=== PATIENT | male | born 1975 | race Caucasian/White ===

== ENCOUNTER 2017-11-03 14:34 | Emergency (ER) | payer SELFPAY ==
[~2017-11-03] VITALS: Ht 195.6 cm; Wt 72.6 kg
[~2017-11-03 14:34] MED LIST: CLOT45CR46 TOP; FLUC100T PO; HYDR-3714 PO; TRAM50TA2 PO
--- OUTSIDE RECORDS SUMMARY | 2017-11-03 14:40 | XMS REPORT ---
Author Author BENITO ELLIOTT [facility] eClinicalWorks Address Unknown Phone Unavailable Care Team Providers Care Assembly Machine Tool Setter Name Role Phone BENITO ELLIOTT CP Unavailable Allergies, Adverse Reactions, Alerts Substance Reaction Event Type N.K.D.A. Info Not Available Non Drug Allergy Problems Problem Type Condition Code Onset Dates Condition Status Assessment Epilepsy, unspecified, not intractable, with status epilepticus G40.901 Active Problem Epilepsy, unspecified, not intractable, with status epilepticus G40.901 Active Medications Medication Code System Code Instructions Start Date End Date Status Dosage Topamax [facility] [address]-37 100 MG take 1 tablet by Oral route 2 times per day Procedures Procedure Coding System Code Date Office Visit, Est Pt., Level 3 CPT-4 62503 Mar 22, 2016 Vital Signs Date/Time: Mar 22, 2016 Cardiac Monitoring Heart Rate 76 bpm Weight 176 lbs Height 77 in BMI 20.87 Index Blood Pressure Diastolic 78 mmHg Blood Pressure Systolic 98 mmHg Results No Known Results Summary Purpose eClinicalWorks Submission
--- OUTSIDE RECORDS SUMMARY | 2017-11-03 14:40 | XMS REPORT ---
Author Author [facility] [place] Address [address] [place] [address] Care Team Providers Care Field Service Consultant Name Role Phone ALEX RAO Unavailable PROBLEMS Type Condition ICD9-CM Code BCT34-HZ Code Onset Dates Condition Status SNOMED Code Problem Epilepsy, unspecified, not intractable, with status epilepticus G40.901 Active [id number] ALLERGIES No Known Allergies SOCIAL HISTORY Never Assessed PLAN OF CARE Activity Details Follow Up prn Reason: VITAL SIGNS Height 77 in 2016-07-27 Weight 176 lbs 2016-07-27 Temperature 98.7 degrees Fahrenheit 2016-07-27 Heart Rate 88 bpm 2016-07-27 Respiratory Rate 18 2016-07-27 BMI 20.87 kg/m2 2016-07-27 Blood pressure systolic 112 mmHg 2016-07-27 Blood pressure diastolic 68 mmHg 2016-07-27 MEDICATIONS Medication Instructions Dosage Frequency Start Date End Date Duration Status Topamax 100 MG take 1 tablet by Oral route 2 times per day Active RESULTS No Results PROCEDURES Procedure Date Ordered Result Body Site CERUMEN REMOVAL 2016-07-27 N/A EAR IRRIGATION July 27, 2016 IMMUNIZATIONS No Known Immunizations MEDICAL (GENERAL) HISTORY Type Description Date Medical History Epilepsy
--- OUTSIDE RECORDS SUMMARY | 2017-11-03 14:40 | XMS REPORT ---
Author Author BENITO ELLIOTT [facility] eClinicalWorks Address Unknown Phone Unavailable Care Team Providers Care Conditioning Machine Operator Name Role Phone BENITO ELLIOTT Unavailable Allergies No Known Allergies Problems Problem Type Condition Code Onset Dates Condition Status Assessment Epilepsy, unspecified, not intractable, with status epilepticus G40.901 Active Problem Unspecified examination V72.9 Active Problem Dermatophytosis of nail 110.1 Active Problem Pain in joint, shoulder region 719.41 Active Problem Costochondritis 733.6 Active Problem Epilepsy, unspecified, not intractable, with status epilepticus G40.901 Active Problem Loss of weight 783.21 Active Problem Other malaise and fatigue 780.79 Active Problem Unspecified disorder of skin and subcutaneous tissue 709.9 Active Problem Cough 786.2 Active Medications Medication Code System Code Instructions Start Date End Date Status Dosage Topamax [facility] [id number] 100 MG take 1 tablet by Oral route 2 times per day Results No Known Results Summary Purpose eClinicalWorks Submission
--- OUTSIDE RECORDS SUMMARY | 2017-11-03 14:40 | XMS REPORT ---
Author Author BENITO ELLIOTT [facility] eClinicalWorks Address Unknown Phone Unavailable Care Team Providers Care Endband Sizer Name Role Phone BENITO ELLIOTT CP Unavailable Allergies, Adverse Reactions, Alerts Substance Reaction Event Type N.K.D.A. Info Not Available Non Drug Allergy Problems Problem Type Condition Code Onset Dates Condition Status Problem Dermatophytosis of nail 110.1 Active Assessment Seizure disorder 345.90 Active Problem Costochondritis 733.6 Active Problem Unspecified disorder of skin and subcutaneous tissue 709.9 Active Problem Pain in joint, shoulder region 719.41 Active Problem Other malaise and fatigue 780.79 Active Problem Unspecified examination V72.9 Active Problem Cough 786.2 Active Problem Loss of weight 783.21 Active Medications Medication Code System Code Instructions Start Date End Date Status Dosage Topamax [facility] [address]-30 100 MG take 1 tablet by Oral route 2 times per day Procedures Procedure Coding System Code Date Office Visit, Est Pt., Level 3 CPT-4 09650 Apr 28, 2015 Vital Signs Date/Time: Apr 28, 2015 Temperature 98.1 F Weight 186.6 lbs Height 77 in BMI 22.13 Index Blood Pressure Diastolic 78 mmHg Blood Pressure Systolic 108 mmHg Cardiac Monitoring Heart Rate 84 bpm Results No Known Results Summary Purpose eClinicalWorks Submission
--- OUTSIDE RECORDS SUMMARY | 2017-11-03 14:41 | XMS REPORT | Continuity of Care Document ---
Author Author [facility] Address Unknown Phone Unavailable Allergies Active Description Code Type Severity Reaction Onset Reported/Identified Relationship to Patient Clinical Status Yes No Known Drug Allergies [id number] Drug Allergy Unknown N/A 11/01/2014 Medications There is no data. Problems Date Dx Coded Attending Type Code Diagnosis Diagnosed By 2008 EARL JEROME, BENITO V70.5 PREEMPLOYMENT/PRESCHOOL EXAM 2008 V70.5 PREEMPLOYMENT/ PRESCHOOL EXAM 2008 [place] PLASCENCIA DO V70.5 PREEMPLOYMENT/PRESCHOOL EXAM 2008 EARL JEROME, BENITO V70.5 PREEMPLOYMENT/PRESCHOOL EXAM 2008 EARL JEROME, BENITO V70.5 PREEMPLOYMENT/PRESCHOOL EXAM 2008 EARL JEROME, BENITO V70.5 PREEMPLOYMENT/PRESCHOOL EXAM 2008 EARL JEROME, BENIOT V70.5 PREEMPLOYMENT/PRESCHOOL EXAM 2008 NANO RINALDI APRN V70.5 PREEMPLOYMENT/PRESCHOOL EXAM 2008 EARL JEROME, BENITO V70.5 PREEMPLOYMENT/PRESCHOOL EXAM 2008 EARL JEROME, BENITO V70.5 PREEMPLOYMENT/PRESCHOOL EXAM 06/19/2009 BENITO ELLIOTT MD 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 06/19/2009 BENITO ELLIOTT MD 690.10 SEBORRHEIC DERMATITIS 06/19/2009 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 06/19/2009 690.10 SEBORRHEIC DERMATITIS 06/19/2009 [place] PLASCENCIA DO 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 06/19/2009 [place] PLASCENCIA DO 690.10 SEBORRHEIC DERMATITIS 06/19/2009 BENITO ELLIOTT MD 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4 Impacted Cerumen 08/29/2009 380.4 Impacted Cerumen 08/29/2009 [place] PLASCENCIA DO 380.4 Impacted Cerumen 08/29/2009 EARL JEROME, BENITO 380.4 Impacted Cerumen 08/29/2009 EARL JEROME, BENITO 380.4 Impacted Cerumen 08/29/2009 BENITO ELLIOTT MD 380.4 Impacted Cerumen 08/29/2009 EARL JEROME, BENITO 380.4 Impacted Cerumen 08/29/2009 NANO RINALDI APRN 380.4 Impacted Cerumen 08/29/2009 EARL JEROME, BENITO 380.4 Impacted Cerumen 08/29/2009 BENITO ELLIOTT MD 380.4 Impacted Cerumen 09/26/2009 BENITO ELLIOTT MD 959.3 Injury, Other And Unspecified, Elbow, Forearm, And Wrist 09/26/2009 BENITO ELLIOTT MD E849.[address] Of Occurrence 09/26/2009 BENITO ELLIOTT MD E906.3 Bite Of Other Animal Except Arthropod 09/26/2009 959.3 Injury, Other And Unspecified, Elbow, Forearm, And Wrist 09/26/2009 E849.8 Other Specified Places Of Occurrence 09/26/2009 E906.3 Bite Of Other Animal Except Arthropod 09/26/2009 PLASCENCIA [place] HUNTER 959.3 Injury, Other And Unspecified, Elbow, Forearm, And Wrist 09/26/2009 PLASCENCIA [place] HUNTER E849.8 Other Specified Places Of Occurrence 09/26/2009 TH[place] E906.3 Bite Of Other Animal Except Arthropod 09/26/2009 BENITO ELLIOTT MD 959.3 Injury, Other And Unspecified, Elbow, Forearm, And Wrist 09/26/2009 BENITO ELLIOTT MD E849.8 Other Specified Places Of Occurrence 09/26/2009 BENITO ELLIOTT MD E906.3 Bite Of Other Animal Except Arthropod 09/26/2009 BENITO ELLIOTT MD 959.3 Injury, Other And Unspecified, Elbow, Forearm, And Wrist 09/26/2009 BENITO ELLIOTT MD E849.8 Other Specified Places Of Occurrence 09/26/2009 BENITO ELLIOTT MD E906.3 Bite Of Other Animal Except Arthropod 09/26/2009 BENITO ELLIOTT MD 959.3 Injury, Other And Unspecified, Elbow, Forearm, And Wrist 09/26/2009 BENITO ELLIOTT MD E849.8 Other Specified Places Of Occurrence 09/26/2009 BENITO ELLIOTT MD E906.3 Bite Of Other Animal Except Arthropod 09/26/2009 BENITO ELLIOTT MD 959.3 Injury, Other And Unspecified, Elbow, Forearm, And Wrist 09/26/2009 BENITO ELLIOTT MD E849.8 Other Specified Places Of Occurrence 09/26/2009 BENITO ELLIOTT MD E906.3 Bite Of Other Animal Except Arthropod 09/26/2009 NANO RINALDI APRN R 959.3 Injury, Other And Unspecified, Elbow, Forearm, And Wrist 09/26/2009 NANO RINALDI APRN R E849.8 Other Specified Places Of Occurrence 09/26/2009 NANO RINALDI APRN R E906.3 Bite Of Other Animal Except Arthropod 09/26/2009 BENITO ELLIOTT MD 959.3 Injury, Other And Unspecified, Elbow, Forearm, And Wrist 09/26/2009 BENITO ELLIOTT MD E849.8 Other Specified Places Of Occurrence 09/26/2009 BENITO ELLIOTT MD E906.3 Bite Of Other Animal Except Arthropod 09/26/2009 BENITO ELLIOTT MD 959.3 Injury, Other And Unspecified, Elbow, Forearm, And Wrist 09/26/2009 BENITO ELLIOTT MD E849.8 [address] Specified [address] Of Occurrence 09/26/2009 BENITO ELLIOTT MD E906.3 Bite Of Other Animal Except Arthropod 12/04/2009 BENITO ELLIOTT MD 728.85 Spasm Of Muscle 12/04/2009 728.85 Spasm Of Muscle 12/04/2009 [place] PLASCENCIA DO 728.85 Spasm Of Muscle 12/04/2009 BENITO ELLIOTT MD 728.85 Spasm Of Muscle 12/04/2009 BENITO ELLIOTT MD 728.85 Spasm Of Muscle 12/04/2009 BENITO ELLIOTT MD 728.85 Spasm Of Muscle 12/04/2009 BENITO ELLIOTT MD 728.85 Spasm Of Muscle 12/04/2009 NANO RINALDI APRN 728.85 Spasm Of Muscle 12/04/2009 BENITO ELLIOTT MD 728.85 Spasm Of Muscle 12/04/2009 BENITO ELLIOTT MD 728.85 Spasm Of Muscle 12/11/2009 BENITO ELLIOTT MD 686.9 Unspecified Local Infection Of Skin And Subcutaneous Tissue 12/11/2009 686.9 Unspecified Local Infection Of Skin And Subcutaneous Tissue 12/11/2009 [place] PLASCENCIA DO 686.9 Unspecified Local Infection Of Skin And Subcutaneous Tissue 12/11/2009 BENITO ELLIOTT MD 686.9 Unspecified Local Infection Of Skin And Subcutaneous Tissue 12/11/2009 BENITO ELLIOTT MD 686.9 Unspecified Local Infection Of Skin And Subcutaneous Tissue 12/11/2009 BENITO ELLIOTT MD 686.9 Unspecified Local Infection Of Skin And Subcutaneous Tissue 12/11/2009 BENITO ELLIOTT MD 686.9 Unspecified Local Infection Of Skin And Subcutaneous Tissue 12/11/2009 NANO RINALDI APRN 686.9 Unspecified Local Infection Of Skin And Subcutaneous Tissue 12/11/2009 BENITO ELLIOTT MD 686.9 Unspecified Local Infection Of Skin And Subcutaneous Tissue 12/11/2009 BENITO ELLIOTT MD 686.9 Unspecified Local Infection Of Skin And Subcutaneous Tissue 02/01/2010 BENITO ELLIOTT MD 305.1 Nondependent Abuse Of Drugs, Tobacco Use Disorder 02/01/2010 BENITO ELLIOTT MD 466.0 Bronchitis, Acute 02/01/2010 305.1 Nondependent Abuse Of Drugs, Tobacco Use Disorder 02/01/2010 466.0 Bronchitis, Acute 02/01/2010 [place] PLASCENCIA DO 305.1 Nondependent Abuse Of Drugs, Tobacco Use Disorder 02/01/2010 [place] PLASCENCIA DO 466.0 Bronchitis, Acute 02/01/2010 BENITO ELLIOTT MD 305.1 Nondependent Abuse Of Drugs, Tobacco Use Disorder 02/01/2010 BENITO ELLIOTT MD 466.0 Bronchitis, Acute 02/01/2010 BENITO ELLIOTT MD 305.1 Nondependent Abuse Of Drugs, Tobacco Use Disorder 02/01/2010 BENITO ELLIOTT MD 466.0 Bronchitis, Acute 02/01/2010 BENITO ELLIOTT MD 305.1 Nondependent Abuse Of Drugs, Tobacco Use Disorder 02/01/2010 BENITO ELLIOTT MD 466.0 Bronchitis, Acute 02/01/2010 BENITO ELLIOTT MD 305.1 Nondependent Abuse Of Drugs, Tobacco Use Disorder 02/01/2010 BENITO ELLIOTT MD 466.0 Bronchitis, Acute 02/01/2010 NANO RINALDI APRN R 305.1 Nondependent Abuse Of Drugs, Tobacco Use Disorder 02/01/2010 NANO RINALDI APRN R 466.0 Bronchitis, Acute 02/01/2010 BENITO ELLIOTT MD 305.1 Nondependent Abuse Of Drugs, Tobacco Use Disorder 02/01/2010 BENITO ELLIOTT MD 466.0 Bronchitis, Acute 02/01/2010 BENITO ELLIOTT MD 305.1 Nondependent Abuse Of Drugs, Tobacco Use Disorder 02/01/2010 BENITO ELLIOTT MD 466.0 Bronchitis, Acute 08/24/2010 BENITO ELLIOTT MD 723.1 CERVICALGIA 08/24/2010 BENITO ELLIOTT MD 780.39 OTHER CONVULSIONS 08/24/2010 723.1 CERVICALGIA 08/24/2010 780.39 OTHER CONVULSIONS 08/24/2010 [place] PLASCENCIA DO 723.1 CERVICALGIA 08/24/2010 [place] PLASCENCIA DO 780.39 OTHER CONVULSIONS 08/24/2010 BENITO ELLIOTT MD 723.1 CERVICALGIA 08/24/2010 BENITO ELLIOTT MD 780.39 OTHER CONVULSIONS 08/24/2010 BENITO ELLIOTT MD 723.1 CERVICALGIA 08/24/2010 BENITO ELLIOTT MD 780.39 OTHER CONVULSIONS 08/24/2010 BENITO ELLIOTT MD 723.1 CERVICALGIA 08/24/2010 BENITO ELLIOTT MD 780.39 OTHER CONVULSIONS 08/24/2010 BENITO ELLIOTT MD 723.1 CERVICALGIA 08/24/2010 BENITO ELLIOTT MD 780.39 OTHER CONVULSIONS 08/24/2010 NANO RINALDI APRN 723.1 CERVICALGIA 08/24/2010 NANO RINALDI APRN 780.39 OTHER CONVULSIONS 08/24/2010 BENITO ELLIOTT MD 723.1 CERVICALGIA 08/24/2010 BENITO ELLIOTT MD 780.39 OTHER CONVULSIONS 08/24/2010 BENITO ELLIOTT MD 723.1 CERVICALGIA 08/24/2010 BENITO ELLIOTT MD 780.39 OTHER CONVULSIONS 09/24/2011 BENITO ELLIOTT MD 719.41 PAIN IN JOINT INVOLVING SHOULDER REGION 09/24/2011 719.41 PAIN IN JOINT INVOLVING SHOULDER REGION 09/24/2011 [place] PLASCENCIA DO 719.41 PAIN IN JOINT INVOLVING SHOULDER REGION 09/24/2011 BENITO ELLIOTT MD 719.41 PAIN IN JOINT INVOLVING SHOULDER REGION 09/24/2011 BENITO ELLIOTT MD 719.41 PAIN IN JOINT INVOLVING SHOULDER REGION 09/24/2011 BENITO ELLIOTT MD 719.41 PAIN IN JOINT INVOLVING SHOULDER REGION 09/24/2011 BENITO ELLIOTT MD 719.41 PAIN IN JOINT INVOLVING SHOULDER REGION 09/24/2011 NANO RINALDI APRN 719.41 PAIN IN JOINT INVOLVING SHOULDER REGION 09/24/2011 BENITO ELLIOTT MD 719.41 PAIN IN JOINT INVOLVING SHOULDER REGION 09/24/2011 BENITO ELLIOTT MD 719.41 PAIN IN JOINT INVOLVING SHOULDER REGION 09/15/2012 V72.9 EXAMINATION, UNSPEC 09/15/2012 [place] PLASCENCIA DO V72.9 EXAMINATION, UNSPEC 09/15/2012 BENITO ELLIOTT MD V72.9 EXAMINATION, UNSPEC 09/15/2012 BENITO ELLIOTT MD V72.9 EXAMINATION, UNSPEC 09/15/2012 BENITO ELLIOTT MD V72.9 EXAMINATION, UNSPEC 09/15/2012 BENITO ELLIOTT MD V72.9 EXAMINATION, UNSPEC 09/15/2012 NANO RINALDI APRN V72.9 EXAMINATION, UNSPEC 09/15/2012 BENITO ELLIOTT MD V72.9 EXAMINATION, UNSPEC 09/15/2012 BENITO ELLIOTT MD V72.9 EXAMINATION, UNSPEC 04/01/2013 PLASCENCIA DOCHARLOTTE 709.9 UNSPECIFIED DISORDER OF SKIN AND SUBCUTANEOUS TISSUE 04/01/2013 PLASCENCIA DO[place]OTTE K 786.2 COUGH 04/01/2013 BENITO ELLIOTT MD 709.9 UNSPECIFIED DISORDER OF SKIN AND SUBCUTANEOUS TISSUE 04/01/2013 BENITO ELLIOTT MD 786.2 COUGH 04/01/2013 BENITO ELLIOTT MD 709.9 UNSPECIFIED DISORDER OF SKIN AND SUBCUTANEOUS TISSUE 04/01/2013 BENITO ELLIOTT MD 786.2 COUGH 04/01/2013 BENITO ELLIOTT MD 709.9 UNSPECIFIED DISORDER OF SKIN AND SUBCUTANEOUS TISSUE 04/01/2013 BENITO ELLIOTT MD 786.2 COUGH 04/01/2013 BENITO ELLIOTT MD 709.9 UNSPECIFIED DISORDER OF SKIN AND SUBCUTANEOUS TISSUE 04/01/2013 BENITO ELLIOTT MD 786.2 COUGH 04/01/2013 NANO RINALDI APRN 709.9 UNSPECIFIED DISORDER OF SKIN AND SUBCUTANEOUS TISSUE 04/01/2013 NANO RINALDI APRN 786.2 COUGH 04/01/2013 BENITO ELLIOTT MD 709.9 UNSPECIFIED DISORDER OF SKIN AND SUBCUTANEOUS TISSUE 04/01/2013 BENITO ELLIOTT MD 786.2 COUGH 04/01/2013 BENITO ELLIOTT MD 709.9 UNSPECIFIED DISORDER OF SKIN AND SUBCUTANEOUS TISSUE 04/01/2013 BENITO ELLIOTT MD 786.2 COUGH 06/21/2013 BENITO ELLIOTT MD 110.1 DERMATOPHYTOSIS OF NAIL 06/21/2013 BENITO ELLIOTT MD 110.1 DERMATOPHYTOSIS OF NAIL 06/21/2013 BENITO ELLIOTT MD 110.1 DERMATOPHYTOSIS OF NAIL 06/21/2013 BENITO ELLIOTT MD 110.1 DERMATOPHYTOSIS OF NAIL 06/21/2013 NANO RINALDI APRN 110.1 DERMATOPHYTOSIS OF NAIL 06/21/2013 BENITO ELLIOTT MD 110.1 DERMATOPHYTOSIS OF NAIL 06/21/2013 BENITO ELLIOTT MD 110.1 DERMATOPHYTOSIS OF NAIL 09/24/2013 BENITO ELLIOTT MD 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/24/2013 NANO RINALDI APRN 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/24/2013 BENITO ELLIOTT MD 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/24/2013 BENITO ELLIOTT MD 733.6 TIETZE'S DISEASE 04/15/2014 BENITO ELLIOTT MD 780.79 OTHER MALAISE AND FATIGUE 04/15/2014 BENITO ELLIOTT MD 783.21 LOSS OF WEIGHT 11/01/2014 DEVORAH TOVAR L Ot 110.4 11/01/2014 DEVORAH TOVAR Ot 729.5 11/01/2014 DEVORAH TOVAR Ot 893.0 11/01/2014 SARAH TOVAREN L Ot E000.8 11/01/2014 DEVORAH TOVAR L Ot E928.9 Procedures Code [place] [address] ROUTINE VENIPUNCTURE 06/21/2013 [id number] GFR CALC (RESULT ONLY) 06/21/2013 70256 CMP 06/21/2013 69441 XRAY RIBS LEFT UNILATERAL 2 OR MORE VIEWS 09/24/2013 40294 ROUTINE VENIPUNCTURE 04/15/2014 72729 CBC 04/15/2014 [id number] GFR CALC (RESULT ONLY) 04/15/2014 09349 CMP 04/15/2014 74108 TSH 04/15/2014 Results There is no data. Encounters ACCT No. Visit Date/Time Discharge Status Pt. Type Provider Facility Loc./Unit Complaint [id number] 04/15/2014 14:15:00 04/15/2014 23:59:59 CLS Outpatient BENITO ELLIOTT MD [id number] 03/18/2014 10:45:00 03/18/2014 23:59:59 CLS Outpatient BENITO ELLIOTT MD [id number] 09/24/2013 15:09:00 09/24/2013 23:59:59 CLS Outpatient NANO RINALDI APRN [id number] 09/24/2013 15:09:00 09/24/2013 23:59:59 CLS Outpatient BENITO ELLIOTT MD [id number] 08/23/2013 09:33:00 08/23/2013 23:59:59 CLS Outpatient BENITO ELLIOTT MD [id number] 06/21/2013 15:33:00 06/21/2013 23:59:59 CLS Outpatient BENITO ELLIOTT MD [id number] 06/21/2013 15:33:00 06/21/2013 23:59:59 CLS Outpatient BENITO ELLIOTT MD [id number] 04/01/2013 18:24:00 04/01/2013 23:59:59 CLS Outpatient [place] PLASCENCIA DO [id number] 09/24/2011 09:27:00 09/24/2011 23:59:59 CLS Outpatient BENITO ELLIOTT MD [id number] 09/15/2012 15:57:00 Document Registration [id number] 11/01/2014 20:48:00 11/01/2014 23:31:00 DIS Emergency DEVORAH TOVAR [id number] 11/01/2014 20:48:43 ACT Document Registration [id number] 07/22/2017 14:20:00 07/22/2017 23:59:59 CLS Outpatient BENITO ELLIOTT MD [facility]
--- NOTE | 2017-11-03 14:59 | ED Headache ---
General Chief Complaint: Head/Cervical Problems Stated Complaint: WALLS,ANXIETY Source: patient History of Present Illness Date Seen by Provider: Nov 03, 2017 Time Seen by Provider: 14:57 Initial Comments to ER with reports of headache and anxiety. He was seen by his primary care provider this morning who gave him a prescription for antianxiety medications.he is concerned that he has either a brain tumor or aneurysmbecause his mother had an aneurysmand he believes that he has a history of a brain tumor. He is not sure what type.. Timing/Duration: other (2 weeks) Severity/Quality: moderate Location: parietal Prior Headaches/Recent Trauma: occasional headaches Associated Symptoms: No confusion, No facial pain Allergies and Home Medications Allergies Coded Allergies: No Known Drug Allergies (Unverified , 11/01/14) Home Medications Topiramate 100 Mg Tablet, 100 MG PO BID, (Reported) Patient Home Medication List Home Medication List Reviewed: Yes Review of Systems Constitutional: see HPI Eyes: No Symptoms Reported Ears, Nose, Mouth, Throat: no symptoms reported Respiratory: no symptoms reported Cardiovascular: no symptoms reported Genitourinary: no symptoms reported Musculoskeletal: no symptoms reported Skin: no symptoms reported Psychiatric/Neurological: No Symptoms Reported Past Diprpzw-Uiwdte-Deltwb Hx Patient Social History Recent Foreign Travel: No Contact w/Someone Who Travel: No Immunizations Up To Date Tetanus Booster (TDap): Unknown Past Medical History Seizure Disorder Reproductive Disorders: No Sexually Transmitted Disease: No HIV/AIDS: No Adverse Reaction/Blood Tranf: No Family Medical History No Pertinent Family Hx Physical Exam Vital Signs Vital Signs - First Documented 11/03/17 14:50 Temp 96.9 Pulse 105 Resp 18 B/P (MAP) 151/83 (105) Pulse Ox 99 Capillary Refill : General Appearance: WD/WN, no apparent distress HEENT: PERRL/EOMI, normal ENT inspection Neck: non-tender, full range of motion Cardiovascular: regular rate, rhythm, no murmur Respiratory: no respiratory distress, no accessory muscle use Gastrointestinal: normal bowel sounds, non tender Extremities: normal range of motion, non-tender Psychiatric: alert, oriented x 3 Crainal Nerves: normal hearing, normal speech Skin: normal color, warm/dry Progress/Results/Core Measures Results/Orders My Orders Orders - KADY VELASCO APRN Ct Head Wo (11/03/17 14:48) Vital Signs/I&O 11/03/17 14:50 Temp 96.9 Pulse 105 Resp 18 B/P (MAP) 151/83 (105) Pulse Ox 99 Departure Impression Primary Impression: Headache Additional Impression: Anxiety Disposition: 01 HOME, SELF-CARE Condition: Stable Departure-Patient Inst. Decision time for Depature: 14:59 Referrals: BENITO ELLIOTT MD (PCP/Family) Primary Care Physician Patient Instructions: Headache, Adult (DC) Add. Discharge Instructions: 1. Follow-up with your doctor next week 2. Return to ER for any concerns 3.All discharge instructions reviewed with patient and/or family. Voiced understanding. KADY VELASCO AUTOMATED ACCESS SYSTEMS TECHNICIAN Nov 03, 2017 14:59
[2017-11-03] MEDS ORDERED: TOPI100T PO (15:09)
--- NOTE | 2017-11-03 15:34 | Diagnostic Imaging Report ---
PROCEDURE: CT head without contrast. TECHNIQUE: Multiple contiguous axial images were obtained through the brain without the use of intravenous contrast. INDICATION: Headache for two weeks. Patient has family history of intracranial aneurysms. No prior studies are available for comparison. The ventricles and sulci are within normal limits. No sulcal effacement is identified. There is no midline shift. No acute intra-axial or extra-axial hemorrhage is detected. Cisterns are patent. The visualized paranasal sinuses are clear. IMPRESSION: No acute intracranial process is detected. Dictated by: Dictated on workstation # [id number]
[2017-11-03 16:12] VITALS: BP 151/83
== END 2017-11-03 16:12 | disposition home or self-care (01) ==
LOC: EDUNIT# 14:34 → ER 14:36
DX: R51 Headache (principal); F41.9 Anxiety disorder, unspecified; G40.909 Epilepsy, unspecified, not intractable, without status epilepticus
CPT/HCPCS: 70450

== ENCOUNTER → 2020-06-29 | Outpatient (CLI) | payer SELFPAY ==
[~2020-06-29] MED LIST changes: +TOPI100T PO
--- NOTE | 2020-06-29 12:34 | Diagnostic Imaging Report ---
PROCEDURE: MR imaging cervical spine without contrast. TECHNIQUE: Multiplanar, multisequence MR imaging of the cervical spine was performed without contrast. INDICATION: Neck pain with right-sided shoulder and arm pain. COMPARISON: No prior studies are available for comparison. FINDINGS: There is reversal of the normal cervical lordotic curvature. Vertebral body marrow signal is unremarkable for a geographic marrow lesion. There are some multilevel degenerative changes noted with variable disc space narrowing and desiccation. This appears to be greatest at C5-C6 level where there are also Modic changes in the adjacent endplates. The cervical cord demonstrates homogeneous signal intensity and normal morphology. Craniocervical junction does demonstrate some cerebellar tonsillar ectopia. C2-C3: No central canal or neural foraminal narrowing is seen. C3-C4: No central canal or neural foraminal narrowing is detected. C4-C5: No central canal or neural foraminal narrowing is seen. Endplate osteophytes do indent the ventral thecal sac. C5-C6: Broad-based disc/osteophyte complex indents the ventral thecal sac. There appears to be moderate stenosis of the left neural foramen. Right neural foramen is patent. C6-C7: Endplate osteophytes indent the ventral thecal sac but central canal and neural foramina are widely patent. C7-T1: Central canal and neural foramina are widely patent. IMPRESSION: Reversal of normal cervical lordotic curvature with multilevel cervical spondylosis. There does appear to be moderate left neural foraminal narrowing at C5-C6 level. No central canal stenosis is detected. Dictated by: Dictated on workstation # [id number]
== END ==
LOC: RAD 11:00
PROVIDERS: ATTEND Nurse Practitioner
DX: M47.812 Spondylosis without myelopathy or radiculopathy, cervical region (principal); M50.20 Other cervical disc displacement, unspecified cervical region
CPT/HCPCS: 72141

== ENCOUNTER 2020-10-20 17:41 | Emergency (ER) | payer SELFPAY ==
[~2020-10-20] VITALS: Ht 195.6 cm; Wt 81.6 kg
[2020-10-20 17:46] VITALS: BP 131/101
[2020-10-20] MEDS ORDERED: CEPH500T PO (18:10)
--- NOTE | 2020-10-20 18:12 | ED Lower Extremity ---
General Chief Complaint: Lower Extremity Stated Complaint: BI LAT FEET TOENAILS BLACK/LIFTING Nursing Triage Note: PT ARRIVED BY PRIVATE VEHICLE WITH CHIEF COMPLAINT OF TOE NAILS FALLING OFF. PT WAS ALERT, ORIENTED X 4 AND AMBUALATORY. A COUPLE MONTHS AGO SEVERAL CINDER BLOCKS FELL ON HIS TOES AT WORK. THE TOE NAILS NOW HAVE FUNGUS. PT HAS HISTORY OF EPILEPSY AND TAKES TOPAMAX. PT STATED LEFT TOE DOESN'T HURT MUCH, BUT RIGHT TOE HURTS WORSE. PT DENIES ALLERGIES. REPORT WAS GIVEN TO PROVIDER AFTER VITALS WERE TAKEN. Nursing Sepsis Screen: No Definite Risk Source: patient Exam Limitations: no limitations (KADY VELASCO APRN) History of Present Illness Date Seen by Provider: October 20, 2020 Time Seen by Provider: 18:06 Initial Comments To ER with reports that both of his great toenails are unattached. He relates this to dropping a cinder block on them a month ago. Onset: other Severity: moderate Pain/Injury Location: bilateral 1st toe Modifying Factors: Worse With Movement (KADY VELASCO APRN) Allergies and Home Medications Allergies Coded Allergies: No Known Drug Allergies (Unverified , 11/01/14) Home Medications Cephalexin 500 Mg Tablet, 500 MG PO TID Prescribed by: KADY VELASCO on 10/20/20 1810 Topiramate 100 Mg Tablet, 100 MG PO BID, (Reported) Patient Home Medication List Home Medication List Reviewed: Yes (KADY VELASCO APRN) Review of Systems Constitutional: see HPI EENTM: see HPI Respiratory: no symptoms reported Cardiovascular: no symptoms reported Musculoskeletal: no symptoms reported Skin: see HPI Psychiatric/Neurological: No Symptoms Reported (KADY VELASCO APRN) Past Aaiktqj-Hjxqab-Vfpega Hx Patient Social History Alcohol Use: Denies Use Type Used: Cigarettes 2nd Hand Smoke Exposure: Yes Recent Infectious Disease Expo: No Recent Hopitalizations: No (KADY VELASCO APRN) Immunizations Up To Date Tetanus Booster (TDap): Unknown (KADY VELASCO APRN) Past Medical History Surgeries: No Respiratory: No Cardiac: No Neurological: Yes Seizure Disorder Reproductive Disorders: No Sexually Transmitted Disease: No HIV/AIDS: No Gastrointestinal: No Musculoskeletal: No Endocrine: No Cancer: No Psychosocial: No Integumentary: No Blood Disorders: No Adverse Reaction/Blood Tranf: No (KADY VELASCO APRN) Family Medical History No Pertinent Family Hx (KADY VELASCO APRN) Physical Exam Vital Signs Vital Signs - First Documented 10/20/20 17:46 Temp 36.7 Pulse 93 Resp 18 B/P (MAP) 131/101 (111) Pulse Ox 96 O2 Delivery Room Air (FANNIE REYES MD) Vital Signs Capillary Refill : Less Than 3 Seconds (KDAY VELASCO APRN) Height, Weight, BMI Height: 6'5.00" Weight: 160lbs. oz. 72.753551gs; 21.00 BMI Method:Stated General Appearance: WD/WN, no apparent distress Respiratory: no respiratory distress, no accessory muscle use Hips: bilateral hip non-tender, bilateral hip normal inspection, bilateral hip normal range of motion Legs: bilateral leg non-tender, bilateral leg normal inspection, bilateral leg normal range of motion Knees: bilateral knee non-tender, bilateral knee normal inspection, bilateral knee normal range of motion Ankles: bilateral ankle non-tender, bilateral ankle normal inspection, bilateral ankle normal range of motion Feet: bilateral foot other (The great toenail bilaterally is thickened and lifted from the nail bed distally. It remains attached to the nailbed only proximally. I did a digital block bilaterally, then the toenail was completely removed. Silver nitrate was used to cauterize the areas of bleeding. This was covered with antibiotic ointment then gauze then Coban.) (KADY VELASCO APRN) Progress/Results/Core Measures Results/Orders Lab Results Laboratory Tests Test 10/20/20 18:06 Range/Units Glucometer 92 70-110 MG/DL (AFNNIE REYES MD) Vital Signs/I&O 10/20/20 17:46 Temp 36.7 Pulse 93 Resp 18 B/P (MAP) 131/101 (111) Pulse Ox 96 O2 Delivery Room Air (FANNIE REYES MD) Blood Pressure Mean: 111 Progress Progress Note : Progress Note I was the attending physician physically present in the emergency department during the care of this patient. I was not directly involved in this patient's care. (FANNIE REYES MD) Departure Impression Primary Impression: Onychomycosis Additional Impression: Loose toenail Disposition: 01 HOME, SELF-CARE Condition: Stable Departure-Patient Inst. Decision time for Depature: 18:08 (KADY VELASCO APRN) Referrals: BENITO ELLIOTT MD (PCP/Family) Primary Care Physician Patient Instructions: Fungal Nail Infections Add. Discharge Instructions: 1. Take the antibiotic as directed. Change the dressing to a regular Band-Aid tomorrow evening. Try to keep them clean and dry tonight. Return to ER for any concerns. All discharge instructions reviewed with patient and/or family. Voiced understanding. Scripts Cephalexin (Cephalexin) 500 Mg Tablet 500 MG PO TID, #21 TAB Prov: KADY VELASCO APRN 10/20/20 KADY VELASCO APRN October 20, 2020 18:12 FANNIE REYES MD October 22, 2020 07:14
[2020-10-20] MEDS ORDERED: CEPHALEXIN 250 MG (KEFLEX) CAP PO SCH (21:00)
== END 2020-10-20 18:15 | disposition home or self-care (01) ==
LOC: EDUNIT# 17:41 → ER 17:44
DX: B35.1 Tinea unguium (principal); G40.909 Epilepsy, unspecified, not intractable, without status epilepticus; Z79.899 Other long term (current) drug therapy; Z77.22 Contact with and (suspected) exposure to environmental tobacco smoke (acute) (chronic)
CPT/HCPCS: 82947